=== PATIENT | female | born 1940 | race Caucasian/White ===

== ENCOUNTER 2018-11-21 12:02 | Emergency (ER) | payer MEDICARE, OTHER ==
[2018-11-21] MEDS: CEPHALEXIN 500 MG CAP PO (13:51)
== END 2018-11-21 14:34 | disposition home or self-care (01) ==
LOC: FTE 14:34
DX: N39.0 Urinary tract infection, site not specified (principal); I10 Essential (primary) hypertension
CPT/HCPCS: 99283